=== PATIENT | female | born 1950 | race Caucasian/White ===

== ENCOUNTER → 2019-08-02 10:36 | Outpatient (BNVA) | payer MEDICARE, SELFPAY | PROVIDERS: Family Provider Family Medicine; Visit Provider Family Medicine | DX: E78.5 Hyperlipidemia, unspecified (principal); E03.9 Hypothyroidism, unspecified; F32.9 Major depressive disorder, single episode, unspecified | CPT/HCPCS: 36415; 80053; 80061; 84443; 85025 ==

== ENCOUNTER → 2019-10-04 13:38 | Outpatient (BNVA) | payer MEDICARE, SELFPAY | PROVIDERS: Family Provider Family Medicine; Visit Provider Family Medicine | DX: F33.41 Major depressive disorder, recurrent, in partial remission (principal); E78.2 Mixed hyperlipidemia; E03.9 Hypothyroidism, unspecified; R03.0 Elevated blood-pressure reading, without diagnosis of hypertension | CPT/HCPCS: 80053; 84443 ==

== ENCOUNTER → 2019-11-15 11:32 | Outpatient (BNVA) | payer MEDICARE, SELFPAY | PROVIDERS: Family Provider Family Medicine; PCP Family Medicine; Visit Provider Family Medicine | DX: E78.2 Mixed hyperlipidemia (principal); R03.0 Elevated blood-pressure reading, without diagnosis of hypertension | CPT/HCPCS: 80053; 80061 ==

== ENCOUNTER → 2021-01-14 11:34 | Outpatient (BNVA) | payer MEDICARE, SELFPAY | PROVIDERS: Family Provider Family Medicine; PCP Family Medicine; Visit Provider Family Medicine | DX: E78.2 Mixed hyperlipidemia (principal); E03.9 Hypothyroidism, unspecified; F33.41 Major depressive disorder, recurrent, in partial remission; J30.2 Other seasonal allergic rhinitis | CPT/HCPCS: 80053; 80061; 84443; 85025 ==

== ENCOUNTER → 2021-08-02 10:57 | Outpatient (BNVA) | payer MEDICARE, SELFPAY | PROVIDERS: Family Provider Family Medicine; PCP Family Medicine; Visit Provider Family Medicine | DX: E03.9 Hypothyroidism, unspecified (principal); E78.2 Mixed hyperlipidemia; F32.9 Major depressive disorder, single episode, unspecified | CPT/HCPCS: 80053; 80061; 84443 ==

== ENCOUNTER → 2022-02-07 10:55 | Outpatient (BNVA) | payer MEDICARE, SELFPAY | PROVIDERS: Family Provider Family Medicine; PCP Family Medicine; Visit Provider Family Medicine | DX: E03.9 Hypothyroidism, unspecified (principal); E78.2 Mixed hyperlipidemia; F32.9 Major depressive disorder, single episode, unspecified | CPT/HCPCS: 80061; 84443 ==

== ENCOUNTER → 2022-11-07 13:25 | Outpatient (BNVA) | payer MEDICARE, SELFPAY | PROVIDERS: Family Provider Family Medicine; PCP Family Medicine; Visit Provider Family Medicine | DX: E78.2 Mixed hyperlipidemia (principal); E03.9 Hypothyroidism, unspecified | CPT/HCPCS: 80053; 80061; 84443; 85025 ==

== ENCOUNTER → 2023-07-14 10:41 | Outpatient (BNVA) | payer MEDICARE, SELFPAY | PROVIDERS: Family Provider Family Medicine; PCP Family Medicine; Visit Provider Family Medicine | DX: E03.9 Hypothyroidism, unspecified (principal); F33.41 Major depressive disorder, recurrent, in partial remission; Z12.31 Encounter for screening mammogram for malignant neoplasm of breast | CPT/HCPCS: 84443 ==

== ENCOUNTER 2023-07-29 11:31 | Outpatient (CLI) | payer MEDICARE, SELFPAY ==
--- NOTE | 2023-07-29 11:30 | MM_ITS ---
WS: [id number] SCREENING DIGITAL BREAST TOMOSYNTHESIS MAMMOGRAM WITH CAD HISTORY: screening COMPARISON: 11/05/2018 Bilateral CC and MLO with tomosynthesis and synthetic mammography submitted. Computer aided detection analyzed. Breast composition: There are scattered areas of fibroglandular density. Spiculated mass measuring 12 x 11 x 9 mm in the posterior medial LEFT breast above the nipple line near 1:00. This mass was also described in 2019 but increased in size. Patient did not return for diagnostic imaging as recommended . RIGHT breast is negative. IMPRESSION: MM/[place] [id number] BI-RADS: 0-Incomplete: Need additional imaging evaluation FOLLOW UP: Need Additional Imaging LEFT breast: Spot compression views (CC and MLO). True ML. Ultrasound to follow if abnormality persists.
== END 2023-07-29 11:32 | disposition home or self-care (01) ==
LOC: RAD 11:31
PROVIDERS: PCP Family Medicine; Visit Provider Family Medicine
DX: Z12.31 Encounter for screening mammogram for malignant neoplasm of breast (principal)
CPT/HCPCS: 77063; 77067

== ENCOUNTER 2023-08-25 11:08 | Outpatient (CLI) | payer MEDICARE, SELFPAY ==
--- NOTE | 2023-08-25 11:00 | MM_ITS ---
WS: [id number] ADDITIONAL VIEWS LEFT MAMMOGRAM with tomosynthesis. LEFT BREAST ULTRASOUND HISTORY: breast mass COMPARISON: 07/29/2023, 11/05/2018 LEFT MAMMOGRAM: Spot compression views and true ML with tomosynthesis and sympathetic mammography. Spiculated mass persisted in the posterior LEFT breast just medial to the nipple line and above the n ipple line near 10-11 o'clock. Spiculated mass measures 10 x 8 mm. Ultrasound to follow. LEFT BREAST ULTRASOUND 2-D and color Doppler imaging submitted. LEFT breast, 10:00, 5 cm from the nipple demonstrates a hypoechoic mass with hyperechoic borders jackelin uring 7 x 9 x 7 mm. Irregular mass with increased vascularity. IMPRESSION: MM/[place] [id number] BI-RADS: 5-Highly Suggestive of Malignancy FOLLOW UP: Biopsy Recommended Ultrasound-guided biopsy recommended of the LEFT breast mass at 10:00. Notified Kelly Funes DO at 08/25/2023 12:44 PM.
--- NOTE | 2023-08-25 11:13 | US_ITS ---
WS: [id number] ADDITIONAL VIEWS LEFT MAMMOGRAM with tomosynthesis. LEFT BREAST ULTRASOUND HISTORY: breast mass COMPARISON: 07/29/2023, 11/05/2018 LEFT MAMMOGRAM: Spot compression views and true ML with tomosynthesis and sympathetic mammography. Spiculated mass persisted in the posterior LEFT breast just medial to the nipple line and above the n ipple line near 10-11 o'clock. Spiculated mass measures 10 x 8 mm. Ultrasound to follow. LEFT BREAST ULTRASOUND 2-D and color Doppler imaging submitted. LEFT breast, 10:00, 5 cm from the nipple demonstrates a hypoechoic mass with hyperechoic borders jackelin uring 7 x 9 x 7 mm. Irregular mass with increased vascularity. IMPRESSION: US/US breast LT limited* [id number] BI-RADS: 5-Highly Suggestive of Malignancy FOLLOW UP: Biopsy Recommended Ultrasound-guided biopsy recommended of the LEFT breast mass at 10:00. Notified Kelly Funes DO at 08/25/2023 12:44 PM.
== END 2023-08-25 11:09 | disposition home or self-care (01) ==
PROVIDERS: PCP Family Medicine; Visit Provider Family Medicine
DX: R92.8 Other abnormal and inconclusive findings on diagnostic imaging of breast (principal); N63.21 Unspecified lump in the left breast, upper outer quadrant
CPT/HCPCS: 76642; 77061; G0279

== ENCOUNTER 2023-09-09 11:56 | Outpatient (CLI) | payer MEDICARE, SELFPAY ==
--- NOTE | 2023-09-09 13:15 | US_ITS ---
WS: [id number] ULTRASOUND-GUIDED LEFT BREAST BIOPSY CLINICAL INFORMATION: left breast mass COMPARISON: 08/25/2023 FINDINGS: The procedure including risks, benefits, and complications were discussed with the patient who agreed to proceed. Using sterile technique patient was prepped and draped in the usual sterile fashion. Aft er 1% lidocaine utilizing real-time ultrasound guidance 6 14-gauge cores were obtained of the LEFT br east lesion at the 10 o'clock position 5 cm from the nipple. Subsequently a titanium clip was placed in the biopsy cavity. No immediate complications. Pathology demonstrates 1. Invasive mammary carcinoma with ductal and lobular features. 2. Nuclear grade 2 3. Tumor size 0.9 cm (glass slide measurement) 4. No precursor lesions or microcalcifications identified. Breast cancer prognostic profile is pending. See pathology report for final results. IMPRESSION: 5. Uncomplicated ultrasound-guided LEFT breast biopsy. 6. The pathology demonstrates invasive mammary carcinoma with ductal and lobular features nuclear gr hilario 2. 7. Breast cancer prognostic profile is pending. 8. Recommend breast surgery consultation. US/[place] [id number] BI-RADS: 6-Known Biopsy-Proven Malignancy FOLLOW UP: Surgical Biopsy Recommended Results were discussed with Aleja in Dr. Kelly Funes's office at [facility] by Dr. Joaquim Everett on 09/10/2023 at 9:00 a.m.
[2023-09-14 14:02] LABS: Breast Profile ER,PR,HER2,Ki-6 See Report
== END 2023-09-09 11:57 | disposition home or self-care (01) ==
LOC: RAD 11:57
PROVIDERS: PCP Family Medicine; Visit Provider Family Medicine
DX: C50.212 Malignant neoplasm of upper-inner quadrant of left female breast
CPT/HCPCS: 19083; 88305; 88361; 88374

== ENCOUNTER → 2024-11-17 15:55 | Outpatient (BNVA) | payer MEDICARE, SELFPAY | PROVIDERS: PCP Family Medicine; Visit Provider Family Medicine | DX: Z13.6 Encounter for screening for cardiovascular disorders (principal); E03.9 Hypothyroidism, unspecified | CPT/HCPCS: 80053; 80061; 84439; 84443; 85025 ==

== ENCOUNTER 2024-11-28 15:44 | Outpatient (CLI) | payer MEDICARE, SELFPAY ==
--- NOTE | 2024-11-28 15:45 | MM_ITS ---
WS: [id number] BILATERAL 3D TOMOSYNTHESIS DIGITAL DIAGNOSTIC MAMMOGRAPHY WITH CAD CLINICAL INFORMATION: history of left breast ca, s/p lumpectomy HISTORY: LEFT breast cancer COMPARISON: 2023 TECHNIQUE: Bilateral CC, MLO, and ML views. FINDINGS: Scattered fibroglandular densities bilaterally. Prior postoperative changes lumpectomy LEFT breast with parenchymal fibrosis and surgical clips. Previously described spiculated lesion has been resected. No suspicious focal mass, asymmetry, calcifications, or architectural distortion. No evidence of malignancy. MM/MM diag BI tomosynthesis [id number] IMPRESSION: DENSITY: There are scattered areas of fibroglandular density. BI-RADS: 2 - Benign. FOLLOW UP: 1 Year Follow-up Recommend return to annual diagnostic mammography.
== END 2024-11-28 15:45 | disposition home or self-care (01) ==
LOC: RAD 15:45
PROVIDERS: PCP Family Medicine; Visit Provider Family Medicine
DX: Z12.31 Encounter for screening mammogram for malignant neoplasm of breast (principal); R92.323 Mammographic fibroglandular density, bilateral breasts; Z98.890 Other specified postprocedural states; N60.32 Fibrosclerosis of left breast
CPT/HCPCS: 77062; G0279

== ENCOUNTER → 2025-02-20 15:31 | Outpatient (BNVA) | payer MEDICARE, SELFPAY | PROVIDERS: PCP Family Medicine; Visit Provider Family Medicine | DX: E03.9 Hypothyroidism, unspecified (principal) | CPT/HCPCS: 84439; 84443 ==

== ENCOUNTER 2025-03-06 00:58 | Emergency (ER) | payer MEDICARE, SELFPAY ==
[2025-03-06] VITALS (7 sets, daily range): BP systolic 161–198; BP diastolic 94–117; PULSE 68–102; RESP 12–18; TEMP 36.7; O2SAT 90–97; BMI 28.1
--- OUTSIDE RECORDS SUMMARY | 2025-03-06 01:03 | XMS_ITS | Clinical Summary ---
Author Organization [facility] Address [address] [place] [address] [place] [address] Care Team Providers Care Rda Name Role Phone Non-Staff, Physician Primary Care Provider Unava ilable Allergies No known active allergies Medications CHROMIUM PICOLINATE ORAL Take by mouth daily. Active 0mega-3 fatty acids-vitamin E (FISH OIL) 1,000 mg Oral Cap Take 1,000 mg by mouth daily. Active multivitamin (DAILY-ZEV) Oral tablet Take 1 Tab by mouth daily. Active cetirizine (ZYRTEC) 10 mg tabletIndication s:Allergic rhinitis Take 10 mg by mouth daily. Active loratadine (CLARITIN) 10 mg tabletIndication s:Allergic rhinitis Take 10 mg by mouth daily. Active glucosamine-elsa droitin (ARTHX DS) 500-400 mg Capsule Take 1 Capsule by mouth. Active raNITIdine (ZANTAC) 150 mg tablet Take 150 mg by mouth 1 time daily as needed. Active atorvastatin (LIPITOR) 10 mg tabletIndication s:Dyslipidemia Take 1 Tablet (10 mg) by mouth late in the day. 30 Tablet 11 04/22/2017 Active ergocalciferol (VITAMIN D2) 50,000 unit capsuleIndicatio ns:Low vitamin D level Take 1 Capsule (50,000 Units) by mouth every 7 days. 12 Capsule 3 04/22/2017 Active DULoxetine (CYMBALTA) 30 mg Capsule, Delayed Release(E.C.) Take 1 Capsule (30 mg) by mouth daily. 30 Capsule 03/02/2018 Active levothyroxine 50 mcg tabletIndication s:Hypothyroidism , unspecified type Take 1 Tablet (50 mcg) by mouth daily. 30 Tablet 03/02/2018 Active LEVOTHYROXINE 50 mcg tabletIndication s:Hypothyroidism , unspecified type TAKE ONE TABLET BY MOUTH ONCE DAILY 90 Tablet 03/03/2018 Active DULoxetine (CYMBALTA) 30 mg Capsule, Delayed Release(E.C.) TAKE 1 CAPSULE BY MOUTH DAILY 90 Capsule 04/06/2018 Active Active Problems Problem Noted Date Diagnosed Date Visit for screening mammogram 03/27/2015 Osteoarthritis, hand 02/07/2014 Overweight (BMI 25.0-29.9) 10/17/2011 Allergic rhinitis 10/17/2011 Hypercholesteremia Hypothyroidism Depression Anxiety [place] spotted fever Immunizations Immunization Administration Dates Next Due Influenza Vaccine High Dose 65+ Yrs IM 7 Family History Medical History Relation Name Comments Healthy Brother 1 Other Brother 2 cerebral palsy Healthy Daughter 1 Healthy Daughter 2 Heart Disease Father Stroke Maternal Grandmother Dementia Mother Heart Disease Mother Healthy Other Healthy Sister 1 Healthy Sister 2 Healthy Sister 3 Healthy Sister 4 Healthy Sister 5 Healthy Son 1 Healthy Son 2 Healthy Son 3 Relation Name Status Comments Brother 1 Alive Brother 2 Alive Daughter 1 Alive Daughter 2 Alive Father Maternal Grandfather Maternal Grandmother (Age 74) Mother Other Alive Paternal Grandfather Paternal Grandmother Sister 1 Alive 1/2 sister Sister 2 1/2 sister Sister 3 1/2 sister Sister 4 1/2 sister Sister 5 Other 1/2 sister Son 1 Alive Son 2 Alive Son 3 Alive Social History Tobacco Use Types Packs/Day Years Used Date Smoking Tobacco: Never Smokeless Tobacco: Never Tobacco Cessation:Counseling Given: No Alcohol Use Standard Drinks/Week Comments Yes 0 (1 standard drink = 0.6 oz pur e alcohol) occasionally Comments No Sex and Gender Information Value Date Recorded Sex Assigned at Not on file Legal Sex Female 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 Gender Identity Not on file Sexual Orientation Not on file Occupation Industry Job Start Date Job End Date Not on file Not on file Not on file Not on file Last Filed Vital Signs Vital Sign Reading Time Taken Comments Blood Pressure 130/84 04/20/2017 11:06 AM SLOT TAG INSERTER Pulse 93 04/20/2017 11:06 AM SLOT TAG INSERTER Temperature 37.1 C (98.8 F) 04/20/2017 11:06 AM SLOT TAG INSERTER Respiratory Rate 14 08/16/2014 11:31 AM CDT Oxygen Saturation 97% 04/20/2017 11:06 AM SLOT TAG INSERTER Inhaled Oxygen Concentration - - Weight 79.5 kg (175 lb 3.2 oz) 04/20/2017 11:06 AM SLOT TAG INSERTER Height 170.2 cm (5' 7 ) 04/20/2017 11:06 AM SLOT TAG INSERTER Body Mass Index 27.44 04/20/2017 11:06 AM SLOT TAG INSERTER Plan of Treatment Health Maintenance Due Date Last Done Comments DTAP/TDAP/TD VACCINES (1 - Tdap) 1970 BREAST CANCER SCREENING 1991 FIT-DNA Q 3 years 1996 FIT/FOBT Q 1 year 1996 Flex Sig/CT Colonography Q 5 years 1996 PNEUMOCOCCAL VACCINE 50+ YEA RS (1 of 1 - PCV) 2001 ZOSTER VACCINE (1 of 2) 2001 OSTEOPOROSIS SCREENING 2016 COLORECTAL SCREENING 03/07/2021 03/07/2011 (Postpone d) Colorectal Cancer Screening 03/07/2021 INFLUENZA VACCINE (#1) 2024 04/20/2017 RSV VACCINE (60+ or ) (1 - 1-dose 75+ series) [address] [place] [address] PLUS [id number] HMO Care Teams Rda Relationship Specialty Start Date End Date Non-Staff, Physician NO ADDRESS ON FILE PCP - General 04/08/19
--- OUTSIDE RECORDS SUMMARY | 2025-03-06 01:03 | XMS_ITS | Clinical Summary ---
Author Organization [facility] Address [address] [place]: [place] [address] Care Team Providers Care Professor Of Biblical Studies Name Role Phone Non-Staff, Physician Primary Care Provider Unava ilable Allergies No known active allergies Medications DULoxetine (CYMBALTA) 30 mg Capsule, Delayed Release(E.C.) Take 1 Capsule (30 mg) by mouth daily. 30 Capsule 0 8 Active levothyroxine 50 mcg tabletIndication s:Hypothyroidism , unspecified type Take 1 Tablet (50 mcg) by mouth daily. 30 Tablet 0 8 Active Additional Information Patient taking differently: 75 mcgOral DAILY, Reported on 09/24/2023 levothyroxine 50 mcg tabletIndication s:Hypothyroidism , unspecified type TAKE ONE TABLET BY MOUTH ONCE DAILY 90 Tablet 0 8 Active DULoxetine (CYMBALTA) 30 mg Capsule, Delayed Release(E.C.) TAKE 1 CAPSULE BY MOUTH DAILY 90 Capsule 0 8 Active ergocalciferol (VITAMIN D2) 50,000 unit capsuleIndicatio ns:Low vitamin D level Take 1 Capsule (50,000 Units) by mouth every 7 days. 12 Capsule 3 7 Active glucosamine-elsa droitin (ARTHX DS) 500-400 mg Capsule Take 1 Capsule by mouth daily. 7 Active loratadine (CLARITIN) 10 mg tabletIndication s:Allergic rhinitis Take 10 mg by mouth daily. 5 Active cetirizine (ZyrTEC) 10 mg tabletIndication s:Allergic rhinitis Take 10 mg by mouth daily. 5 Active zinc gluconate 50 mg Tablet Take by mouth daily at bedtime. Active MAGNESIUM GLUCONATE ORAL Take 400 mg by mouth daily at bedtime. Active HYDROcodone-acet aminophen (NORCO) 5-325 mg tabletIndication s:Malignant neoplasm of upper-inner quadrant of left breast in female, estrogen receptor positive (CMS/HCC) Take 1 Tablet by mouth every 6 hours as needed for Pain, Moderate. Max Daily Amount: 4 Tablets 10 Tablet 4 Active naproxen (NAPROSYN) 375 mg tablet TAKE 1 TABLET(375 MG) BY MOUTH EVERY 8 HOURS NEEDED FOR MODERATE PAIN 20 Tablet 4 Active Active Problems Problem Noted Date Diagnosed Date BRCA negative 12/01/2023 Lt breast Ca - s/p lump & SNbx (10/21/23) 024 Cancer Staging:Clinical stage from 09/24/2023: cT1b, cN0, cM0, ER+, CO+, HER2- - Unsigned Pathologic stage from 10/27/2023:Stage IA(pT1c, pN0(sn), cM0, G1, ER+, CO+, HER2- , Oncotype DX score: 13) - Signed by Domi Cowart MD on 11/23/2023 Visit for screening mammogram 03/27/2015 Osteoarthritis, hand 02/07/2014 Overweight (BMI 25.0-29.9) 10/17/2011 Allergic rhinitis 10/17/2011 Anxiety Hypothyroidism Depression Hypercholesteremia [place] spotted fever Encounters Date Type Department Care Team Description 01/17/2025 External Device Data [facility] ABSTRACTION Provider, Abstract 01/10/2025 External Device Data [facility] ABSTRACTION Provider, Abstract 01/04/2025 External Device Data [facility] ABSTRACTION Provider, Abstract 12/14/2024 External Device Data [facility] ABSTRACTION Provider, Abstract 12/13/2024 External Device Data [facility] ABSTRACTION Provider, Abstract from Last 3 Months Immunizations Immunization Administration Dates Next Due Influenza [...] Alive Paternal Grandfather Paternal Grandmother Sister 1 1/2 sister Sister 2 1/2 sister Sister 3 1/2 sister Sister 4 Other 1/2 sister Sister 5 Alive 1/2 sister Son 1 Alive Son 2 Alive Son 3 Alive Social History Tobacco Use Types Packs/Day Years Used Date Smoking Tobacco: Never Smokeless Tobacco: Never Tobacco Cessation:Counseling Given: Not Answered Alcohol Use Standard Drinks/Week Comments Yes 0 (1 standard drink = 0.6 oz pur e alcohol) Feeling Safe Answer Date Recorded Are you in a relationship wi th someone who hurts you emotionally and/or physically? No 10/21/2023 Comments No Sex and Gender Information Value Date Recorded Sex Assigned at Not on file Legal Sex Female 12:23 PM APPRENTICE ARCHITECT Gender Identity Not on file Sexual Orientation Not on file Last Filed Vital Signs Vital Sign Reading Time Taken Comments Blood Pressure 125/80 01/28/2024 1:31 PM CDT Pulse 94 10/21/2023 12:50 PM CDT Temperature 36.1 C (97 F) 10/21/2023 12:20 PM CDT Respiratory Rate 12 10/21/2023 12:20 PM CDT Oxygen Saturation 93% 01/28/2024 1:31 PM CDT Inhaled Oxygen Concentration - - Weight 78 kg (172 lb) 01/28/2024 1:31 PM CDT Height 170.2 cm (5' 7 ) 01/28/2024 1:31 PM CDT Body Mass Index 26.94 01/28/2024 1:31 PM CDT Plan of Treatment Health Maintenance Due Date Last Done Comments DTAP/TDAP/TD VACCINES (1 - Tdap) 1970 COLORECTAL SCREENING 1996 Colorectal Cancer Screening 1996 FIT-DNA Q 3 years 1996 FIT/FOBT Q 1 year 1996 Flex Sig/CT Colonography Q 5 years 1996 PNEUMOCOCCAL VACCINE 50+ YEA RS (1 of 1 - PCV) 2001 ZOSTER VACCINE (1 of 2) 2001 OSTEOPOROSIS SCREENING 2016 BREAST CANCER SCREENING 08/24/2024 08/25/2023, 07/29 INFLUENZA VACCINE (#1) 2024 04/20/2017 RSV VACCINE (60+ or ) (1 - 1-dose 75+ series) 2026 Medical Devices Implanted Type Area Pharmaceutical Botanist Device Identifier Shelf Expiration Date Model / Serial / Lot Clip Ligating Horizon Med Ti [id number] - Csc - Sna Implanted:Qty: 1 on 10/21/2023 by Jatin Renee MD at [facility] Clip Left: Breast TELEFLEX- WECK CLOSURE SYS 05/03/2028 [id number] / NA / [id number] Procedures Procedure Name Priority Date/Time Associated Diagnosis Comments MAMMO DIAGNOSTIC UNI LEFT W OR WO CAD Routine 08/25/2023 1:42 PM CDT from Last 3 Months or Most Recently Relevant to Health Maintenance Results * MAMMO DIAGNOSTIC UNI LEFT W OR WO CAD (08/25/2023 1:42 PM CDT) Anatomical Region Laterality Modality Breast Left Mammography us Abstract Provider MAMMO ORDERABLES Final Result from Last 3 Months or Most Recently Relevant to Health Maintenance [place] [address] [address] [place] [id number] MCR Care Teams Professor Of Biblical Studies Relationship Specialty Start Date End Date Non-Staff, Physician NO ADDRESS ON FILE PCP - General 04/08/19
--- OUTSIDE RECORDS SUMMARY | 2025-03-06 01:03 | XMS_ITS | Encounter Summary ---
Author Organization [facility] Address [address] [place] [address] Care Team Providers Care Mobile Plant Operators Name Role Phone Non-Staff, Physician Primary Care Provider Unava ilable Encounter Details Date Type Department Care Team (Latest Contact Info) Description 11/04/2013 Ancillary Orders [facility] Centralized Scheduling [address] [place] [address] James Dela Cruz, [address] [place] [id number] Other screening mammogram (Primary Dx) Social History Tobacco Use Types Packs/Day Years Used Date Smoking Tobacco: Never Smokeless Tobacco: Never Alcohol Use Standard Drinks/Week Comments Yes 0 (1 standard drink = 0.6 oz pur e alcohol) occasionally Comments No Sex and Gender Information Value Date Recorded Sex Assigned at Not on file Legal Sex Female 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
[2025-03-06] MEDS: ondansetron 2 mg/ML SDV 2 mL 4 MG IVP (02:22)
[2025-03-06] MEDS: morphine 4 mg/mL SDV 1 mL IVP (02:22)
--- NOTE | 2025-03-06 02:33 | W.ED.ABDPA2 ---
Documented by User: Dheeraj Kiran DO 03/06/25 22:42 HPI - Abdominal Pain General: Chief Complaint: Abdominal Pain Stated Complaint: Abd Pain, N/V Time Seen by Provider: 03/06/25 01:52 History of Present Illness: Patient is a 74-year-old female who presents with acute onset of lower abdominal pain and back pain that began suddenly at approximately 8:30pm today. She describes the pain as located in her lower abdomen and radiating to her back. The patient reports associated nausea with one episode of emesis. She denies having experienced similar pain previously. The patient reports experiencing chills intermittently but denies fever. She states she ate KF for dinner prior to symptom onset, though a family member who accompanied her reports eating similar food without illness. The patient reports having had a bowel movement since symptom onset but denies diarrhea or blood in stool. She also denies dysuria. No recent antibiotic use reported. Related Data Home Medications ?Medication ?Instructions ?Recorded ?Confirmed beet root PO DAILY 02/20/25 02/20/25 Previous Rx's ?Medication ?Instructions ?Recorded bupropion HCl 300 mg 24 hr tablet, 300 mg PO QAM #30 tabs 02/20/25 extended release levothyroxine 50 mcg tablet 50 mcg PO DAILY #90 tabs 02/22/25 (Levoxyl) tamsulosin 0.4 mg capsule 0.4 mg PO DAILY #10 caps 03/06/25 Allergies Allergy/AdvReac Type Severity Reaction Status Date / Time No Known Allergies Allergy Verified 03/06/25 01:32 [facility] ED PFSH: Medical History Acquired hypothyroidism Hyperlipidemia Moderate episode of recurrent major depressive disorder Surgical History History of lumpectomy of left breast negative sentinal node bx. ER/MT positive, Her2 negative. declined post-op radiation History of appendectomy History of surgery on arm Social History Smoking and tobacco/nicotine status: never used tobacco/nicotine Alcohol intake: current Alcohol intake frequency: holidays/special occasions only Substance/Drug Use: never Physical Exam Const: GENERAL APPEARANCE: cooperative and ill appearing (mildly); not frail appearing HENMT: COMMON NORMALS: normocephalic, atraumatic and Normal external nose present HEAD & SCALP: normocephalic and atraumatic FACE & SINUS: normal facial exam and face symmetric NOSE: Normal external nose present Eye: COMMON NORMALS: Equal, round and reactive pupils present and EOMs intact bilaterally PUPIL: Yes Equal, round and reactive pupils present Neck/C-Spine: GENERAL: Yes trachea midline Chest: CHEST: Yes Symmetrical chest wall rise Resp: EFFORT & INSPECTION: Yes symmetric chest movement AUSCULTATION: no rales, no rhonchi and no wheezes Cardio: COMMON NORMALS: regular rate and regular rhythm RATE: regular rate RHYTHM: regular rhythm GI: COMMON NORMALS: Normal to inspection, nondistended, normoactive bowel sounds present OTHER: Mild diffuse tenderness Extremity: COMMON NORMALS: no pedal edema Neuro: MABEL COMA SCALE: document GCS findings Mabel coma scale eye opening: Spontaneous Mabel coma scale verbal response: Orientated Mabel coma scale motor response: [place] coma scale total score: 15 SENSORY EXAM: Yes extremities (intact) Psych: COMMON NORMALS: speech normal SPEECH: Yes normal speech Skin: COMMON NORMALS: no rashes or lesions noted GENERAL SKIN EXAM: no rashes or lesions noted Course Vital Signs: Vital signs: Vital Signs Temperature 98.0 F 03/06/25 01:26 Pulse Rate 77 03/06/25 08:14 Respiratory Rate 12 03/06/25 05:54 Blood Pressure 164/99 03/06/25 08:14 Pulse Oximetry 97 03/06/25 08:14 Oxygen Delivery Me thod Room Air 03/06/25 07:36 Oxygen Flow Rate 2 03/06/25 05:54 MDM - Abdominal Pain Medical Decision Making Patient seems short of breath. Saturations are below 90%. She is placed on 2 L nasal cannula with improvement. She was hypertensive on arrival. She is given metoprolol with some improvement. Blood pressure is now 169/92. Heart rate is 70. Her creatinine is 1.3. CBC BMP are otherwise normal. Lactic acid is 0.7. CRP is only 3. Urinalysis reveals 2+ blood no leukocyte esterase. CT of the belly was performed due to abdominal tenderness, but converted to CTA of the chest with follow-through to the belly given her shortness of breath and hypoxia. Results are pending. Lab Data 03/06/25 01:35 03/06/25 01:35 Labs/Radiology: Radiology Impressions Chest/Abdomen/Pelvis CT 03/06/25 03:38 IMPRESSION: 1. No pulmonary embolism 2. 3 mm subpleural nodules as described. For patients at low risk (minimal or absent history of smoking and of other known risk factors), no routine follow-up is indicated. For patients at high risk (history of smoking or of other known risk factors), consider optional CT Chest at 12 months. IMPRESSION: 1. [id number] left hydronephrosis and hydroureter with left renal calyceal rupture and prominent perinephric fluid, secondary to an obstructing 4 mm left UVJ calculus. Thickening of the left anterior renal fascia. Decreased enhancement of the left kidney as compared to the right, suggestive of impaired renal function. 2. 2 mm distal right ureteral nonobstructing calculus just proximal to the right UVJ; there is mild focal periureteral inflammatory change at the right UVJ, but no significant right hydronephrosis or right hydroureter. Right renal inferior pole tiny nonspecific subcapsular fluid collection. 3. Bilateral adrenal gland nodularity as discussed. 4. Diverticulosis of the left and sigmoid colon, without diverticulitis 5. RLQ surgical clips are seen. 6. Appendix is not definitely visualized. NoNo pericecal inflammatory change. 7. Suggestion of mildly dilated pancreatic duct at the pancreatic head, uncinate process and proximal body. Consider MRI (pancreatic mass protocol) for further characterization and to exclude underlying pancreatic head neoplasm. Laboratory Results WBC 9.57 10^3/uL (3.29-11.43) 03/06/25 01:35 RBC 4.53 10^6/uL (3.85-5.65) 03/06/25 01:35 Hgb 14.70 g/dL (11.27-16.99) 03/06/25 01:35 Hct 42.5 % (36-47) 03/06/25 01:35 MCV 93.8 fl (85-98) 03/06/25 01:35 MCH 32.5 pg (27-33) 03/06/25 01:35 MCHC 34.6 g/dL (30-55) 03/06/25 01:35 RDW 12.0 % (12.1-15.1) L 03/06/25 01:35 Plt Count 293 10^3/cmm (157-399) 03/06/25 01:35 MPV 9.7 fL (7.4-10.4) 03/06/25 01:35 Neut % (Auto) 85.2 % 03/06/25 01:35 Lymph % (Auto) 10.2 % 03/06/25 01:35 [place] % (Auto) 3.3 % 03/06/25 01:35 Eos % (Auto) 0.7 % 03/06/25 01:35 Baso % (Auto) 0.4 % 03/06/25 01:35 Neut # (Auto) 8.14 10^3/uL (1.8-7.7) H 03/06/25 01:35 Lymph # (Auto) 1.0 10^3/uL (0.8-4.8) 03/06/25 01:35 [place] # (Auto) 0.3 10^3/uL (0.2-0.9) 03/06/25 01:35 Eos # (Auto) 0.1 10^3/uL (0.0-0.8) 03/06/25 01:35 Baso # (Auto) 0.0 10^3/uL (0.0-0.1) 03/06/25 01:35 Nucleated RBC % (auto) 0 % 03/06/25 01:35 Nucleated RBCs # 0.0 /100WBC 03/06/25 01:35 Sodium 144 mmol/L (136-145) 03/06/25 01:35 Potassium 4.3 mmol/L (3.5-5.1) 03/06/25 01:35 Chloride 104 mmol/L (98-107) 03/06/25 01:35 Carbon Dioxide 26 mmol/L (22-29) 03/06/25 01:35 Anion Gap 18.3 (5-19) 03/06/25 01:35 BUN 19 mg/dL (8-23) 03/06/25 01:35 Creatinine 1.3 mg/dL (0.5-0.9) H 03/06/25 01:35 GFR Calculation Not Reportable 03/06/25 01:35 Glucose 125 mg/dL (65-115) H 03/06/25 01:35 Calculated Osmolality 302 mOsm/kg (285-295) H 03/06/25 01:35 Lactic Acid 0.7 mmol/L (0.5-2.2) 03/06/25 02:57 Calcium 10.1 mg/dL (8.5-10.5) 03/06/25 01:35 Total Bilirubin 0.3 mg/dL (0.15-1.2) 03/06/25 01:35 AST 20 U/L (0-32) 03/06/25 01:35 ALT 15 U/L (0-33) 03/06/25 01:35 Alkaline Phosphatase 145 U/L (35-105) H 03/06/25 01:35 Troponin T Baseline 8 ng/L (0-10) 03/06/25 01:35 Troponin T 120 Minute 7.31 ng/L (0-10) 03/06/25 04:00 Delta Troponin T -0.69 ABS# (0-10) L 03/06/25 04:00 Troponin T Hi Sens 6Hr 10.64 ng/L (0-10) H 03/06/25 07:22 Troponin T Hi Sens 6Hr Delta 2.64 ng/L (0-12) 03/06/25 07:22 C-Reactive Protein 3.0 mg/L (0.0-4.9) 03/06/25 01:35 Total Protein 7.8 g/dL (6.6-8.7) 03/06/25 01:35 Albumin 4.6 g/dL (3.5-5.2) 03/06/25 01:35 Globulin 3.2 g/dL (1.3-4.6) 03/06/25 01:35 Lipase 27 U/L (13-60) 03/06/25 01:35 Urine Color Yellow (Yellow) 03/06/25 03:31 Urine Appearance Clear (CLEAR) 03/06/25 03:31 Urine pH 8 (5-7) A 03/06/25 03:31 Ur Specific [place] 1.015 (1.005-1.030) 03/06/25 03:31 Urine Protein Neg (Negative) 03/06/25 03:31 Urine Glucose (UA) Norm (Normal) 03/06/25 03:31 Urine Ketones 1+ (Negative) H 03/06/25 03:31 Urine Blood 2+ (Negative) H 03/06/25 03:31 Urine Nitrate Negative (Negative) 03/06/25 03:31 Urine Bilirubin Neg (Negative) 03/06/25 03:31 Urine Urobilinogen Norm mg/dL (Negative) 03/06/25 03:31 Ur Leukocyte Esterase Trace (Negative) H 03/06/25 03:31 Urine RBC 3-5 /hpf (0-2) 03/06/25 03:31 Urine WBC 0-4 /hpf (0-5) H 03/06/25 03:31 Ur Squamous Epith Cells 0-4 /hpf (0-5) H 03/06/25 03:31 Amorphous Sediment Not Reportable 03/06/25 03:31 Urine Bacteria None /hpf (NONE) 03/06/25 03:31 Discharge Plan Discharge Patient Disposition: Home Clinical Impression: Calculus of kidney, Dilation of pancreatic duct, Elevated serum creatinine, Pericardial effusion Condition: Stable Prescriptions: New tamsulosin 0.4 mg capsule 0.4 mg PO DAILY Qty: 10 0RF No Action beet root PO DAILY bupropion HCl 300 mg tablet extended release 24 hr 300 mg PO QAM Qty: 30 1RF levothyroxine [Levoxyl] 50 mcg tablet 50 mcg PO DAILY Qty: 90 1RF Discharge Orders: Discharge ED (Routine); Ordered 03/06/25 Ordered By: Darek Cherry Referrals: Kelly Funes DO [Primary Care Provider, Family Practice] Discharge Diet: Usual diet Discharge Activity: Resume usual activity Patient Instructions: Kidney Stones (ED), How to Strain Your Urine (ED), Opioid Safety, Pain Management, Patient Portal & Danay Instructions Activity Restrictions/Additional Instructions: Thank you for choosing [facility] for your healthcare needs today. It is very important that you follow up as instructed or that you return to the Emergency Department should you have concerns or if your condition changes or worsens in any way. Emergency department visits are focused on emergent conditions, in some cases you may require further evaluation on an outpatient basis. You were seen in the emergency room with complaints of abdominal pain. CT had several findings. There was no pulmonary embolism but there is some small fluid around the heart and some slight congestion in the lungs your oxygen saturations are normal at the time of discharge you should have a echocardiogram to further evaluate this. This can be done as an outpatient. You are also noted to have bilateral kidney stones suspect based the stones have passed since the pain had resolved. Will discharge you home on Flomax and have you strain your urine and follow-up with urology. Your kidney function was slightly elevated this is likely due to the kidney stones. This does not require hospitalization or any intervention but should have follow-up with your doctor within the next 7 to 10 days to repeat kidney function testing and recheck your blood pressure. You can follow-up on the echocardiogram (ultrasound of your heart) with your primary care doctor as well. If you have recurrence of abdominal pain increasing shortness of breath or chest pain return to the emergency room. (Please note that included in your discharge packet is information concerning opioid safety and pain management. This information is given to all patients were discharged from the ER regardless of their discharge diagnosis or the medicines they usually take or are prescribed.) Print Language: Surinamese Sign Out Sign Out Data: Patient Sign Out occurred on 03/06/25 at 06:44. Patient's care was discussed, and care was transferred from Dheeraj Kiran DO to Darek Cherry DO. 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 Documented by User: Darek Cherry DO 03/06/25 08:02 HPI - Abdominal Pain General: Chief Complaint: Abdominal Pain Stated Complaint: Abd Pain, N/V Time Seen by Provider: 03/06/25 01:52 Related Data Home Medications ?Medication ?Instructions ?Recorded ?Confirmed beet root PO DAILY 02/20/25 02/20/25 Previous Rx's ?Medication ?Instructions ?Recorded bupropion HCl 300 mg 24 hr tablet, 300 mg PO QAM #30 tabs 02/20/25 extended release levothyroxine 50 mcg tablet 50 mcg PO DAILY #90 tabs 02/22/25 (Levoxyl) tamsulosin 0.4 mg capsule 0.4 mg PO DAILY #10 caps 03/06/25 Allergies Allergy/AdvReac Type Severity Reaction Status Date / Time No Known Allergies Allergy Verified 03/06/25 01:32 [facility] ED PFS: Medical History Acquired hypothyroidism Hyperlipidemia Moderate episode of recurrent major depressive disorder Surgical History History of lumpectomy of left breast negative sentinal node bx. ER/MT positive, Her2 negative. declined post-op radiation History of appendectomy History of surgery on arm Social History Smoking and tobacco/nicotine status: never used tobacco/nicotine Alcohol intake: current Alcohol intake frequency: holidays/special occasions only Substance/Drug Use: never Physical Exam Neuro: MABEL COMA SCALE: document GCS findings Mabel coma scale total score: 15 Course Vital Signs: Vital signs: Vital Signs Temperature 98.0 F 03/06/25 01:26 Pulse Rate 77 03/06/25 08:14 Respiratory Rate 12 03/06/25 05:54 Blood Pressure 164/99 03/06/25 08:14 Pulse Oximetry 97 03/06/25 08:14 Oxygen Delivery Me thod Room Air 03/06/25 07:36 Oxygen Flow Rate 2 03/06/25 05:54 MDM - Abdominal Pain Medical Decision Making Patient seems short of breath. Saturations are below 90%. She is placed on 2 L nasal cannula with improvement. She was hypertensive on arrival. She is given metoprolol with some improvement. Blood pressure is now 169/92. Heart rate is 70. Her creatinine is 1.3. CBC BMP are otherwise normal. Lactic acid is 0.7. CRP is only 3. Urinalysis reveals 2+ blood no leukocyte esterase. CT of the belly was performed due to abdominal tenderness, but converted to CTA of the chest with follow-through to the belly given her shortness of breath and hypoxia. Results are pending. Care assumed at change of shift. First reevaluated patient her oxygen sat is 98 to 100% on room air and oxygen was removed and she is monitored she maintains her sats in the mid 90s on room air 94 to 96%. Her vital signs are stable CT showed some ground glass changes at the base of her lungs and a small pericardial effusion no PEs no pneumonia. It also showed bilateral stones her pain has resolved. Urine did not show any signs of infection did show 3+ blood. Suspect she has already passed the stones they were rather small at 4 mm on the left and 2 mm on the right. Will discharge patient home have her strain her urine and set up follow-up with urology. Will also set her up for an outpatient echocardiogram and follow-up with her primary care doctor. She has no respiratory symptoms currently. She is now no longer hypoxic. She reports she had been somewhat congested this last week which she had attributed to allergies. Finally, there is a question of abnormality in the pancreatic head they recommend MRI we will set her up for an outpatient MRI for pancreas and follow-up with primary care. Reviewed all of these findings in detail with the patient. While at the bedside her oxygen sats are maintained normally she has no shortness of breath. Her monitor frequently is not tracking well is when her oxygen sats deteriorated at this time though these notify would warrant hospitalization patient vies to return if she has further problems. Medical Records I reviewed the patient's medical records. Lab Data I reviewed the patient's lab results. 03/06/25 01:35 03/06/25 01:35 Labs/Radiology: Radiology Impressions Chest/Abdomen/Pelvis CT 03/06/25 03:38 IMPRESSION: 1. No pulmonary embolism 2. 3 mm subpleural nodules as described. For patients at low risk (minimal or absent history of smoking and of other known risk factors), no routine follow-up is indicated. For patients at high risk (history of smoking or of other known risk factors), consider optional CT Chest at 12 months. IMPRESSION: 1. Niik-gu-[id number] left hydronephrosis and hydroureter with left renal calyceal rupture and prominent perinephric fluid, secondary to an obstructing 4 mm left UVJ calculus. Thickening of the left anterior renal fascia. Decreased enhancement of the left kidney as compared to the right, suggestive of impaired renal function. 2. 2 mm distal right ureteral nonobstructing calculus just proximal to the right UVJ; there is mild focal periureteral inflammatory change at the right UVJ, but no significant right hydronephrosis or right hydroureter. Right renal inferior pole tiny nonspecific subcapsular fluid collection. 3. Bilateral adrenal gland nodularity as discussed. 4. Diverticulosis of the left and sigmoid colon, without diverticulitis 5. RLQ surgical clips are seen. 6. Appendix is not definitely visualized. NoNo pericecal inflammatory change. 7. Suggestion of mildly dilated pancreatic duct at the pancreatic head, uncinate process and proximal body. Consider MRI (pancreatic mass protocol) for further characterization and to exclude underlying pancreatic head neoplasm. Laboratory Results WBC 9.57 10^3/uL (3.29-11.43) 03/06/25 01:35 RBC 4.53 10^6/uL (3.85-5.65) 03/06/25 01:35 Hgb 14.70 g/dL (11.27-16.99) 03/06/25 01:35 Hct 42.5 % (36-47) 03/06/25 01:35 MCV 93.8 fl (85-98) 03/06/25 01:35 MCH 32.5 pg (27-33) 03/06/25 01:35 MCHC 34.6 g/dL (30-55) 03/06/25 01:35 RDW 12.0 % (12.1-15.1) L 03/06/25 01:35 Plt Count 293 10^3/cmm (157-399) 03/06/25 01:35 MPV 9.7 fL (7.4-10.4) 03/06/25 01:35 Neut % (Auto) 85.2 % 03/06/25 01:35 Lymph % (Auto) 10.2 % 03/06/25 01:35 [place] % (Auto) 3.3 % 03/06/25 01:35 Eos % (Auto) 0.7 % 03/06/25 01:35 Baso % (Auto) 0.4 % 03/06/25 01:35 Neut # (Auto) 8.14 10^3/uL (1.8-7.7) H 03/06/25 01:35 Lymph # (Auto) 1.0 10^3/uL (0.8-4.8) 03/06/25 01:35 [place] # (Auto) 0.3 10^3/uL (0.2-0.9) 03/06/25 01:35 Eos # (Auto) 0.1 10^3/uL (0.0-0.8) 03/06/25 01:35 Baso # (Auto) 0.0 10^3/uL (0.0-0.1) 03/06/25 01:35 Nucleated RBC % (auto) 0 % 03/06/25 01:35 Nucleated RBCs # 0.0 /100WBC 03/06/25 01:35 Sodium 144 mmol/L (136-145) 03/06/25 01:35 Potassium 4.3 mmol/L (3.5-5.1) 03/06/25 01:35 Chloride 104 mmol/L (98-107) 03/06/25 01:35 Carbon Dioxide 26 mmol/L (22-29) 03/06/25 01:35 Anion Gap 18.3 (5-19) 03/06/25 01:35 BUN 19 mg/dL (8-23) 03/06/25 01:35 Creatinine 1.3 mg/dL (0.5-0.9) H 03/06/25 01:35 GFR Calculation Not Reportable 03/06/25 01:35 Glucose 125 mg/dL (65-115) H 03/06/25 01:35 Calculated Osmolality 302 mOsm/kg (285-295) H 03/06/25 01:35 Lactic Acid 0.7 mmol/L (0.5-2.2) 03/06/25 02:57 Calcium 10.1 mg/dL (8.5-10.5) 03/06/25 01:35 Total Bilirubin 0.3 mg/dL (0.15-1.2) 03/06/25 01:35 AST 20 U/L (0-32) 03/06/25 01:35 ALT 15 U/L (0-33) 03/06/25 01:35 Alkaline Phosphatase 145 U/L (35-105) H 03/06/25 01:35 Troponin T Baseline 8 ng/L (0-10) 03/06/25 01:35 Troponin T 120 Minute 7.31 ng/L (0-10) 03/06/25 04:00 Delta Troponin T -0.69 ABS# (0-10) L 03/06/25 04:00 Troponin T Hi Sens 6Hr 10.64 ng/L (0-10) H 03/06/25 07:22 Troponin T Hi Sens 6Hr Delta 2.64 ng/L (0-12) 03/06/25 07:22 C-Reactive Protein 3.0 mg/L (0.0-4.9) 03/06/25 01:35 Total Protein 7.8 g/dL (6.6-8.7) 03/06/25 01:35 Albumin 4.6 g/dL (3.5-5.2) 03/06/25 01:35 Globulin 3.2 g/dL (1.3-4.6) 03/06/25 01:35 Lipase 27 U/L (13-60) 03/06/25 01:35 Urine Color Yellow (Yellow) 03/06/25 03:31 Urine Appearance Clear (CLEAR) 03/06/25 03:31 Urine pH 8 (5-7) A 03/06/25 03:31 Ur Specific [place] 1.015 (1.005-1.030) 03/06/25 03:31 Urine Protein Neg (Negative) 03/06/25 03:31 Urine Glucose (UA) Norm (Normal) 03/06/25 03:31 Urine Ketones 1+ (Negative) H 03/06/25 03:31 Urine Blood 2+ (Negative) H 03/06/25 03:31 Urine Nitrate Negative (Negative) 03/06/25 03:31 Urine Bilirubin Neg (Negative) 03/06/25 03:31 Urine Urobilinogen Norm mg/dL (Negative) 03/06/25 03:31 Ur Leukocyte Esterase Trace (Negative) H 03/06/25 03:31 Urine RBC 3-5 /hpf (0-2) 03/06/25 03:31 Urine WBC 0-4 /hpf (0-5) H 03/06/25 03:31 Ur Squamous Epith Cells 0-4 /hpf (0-5) H 03/06/25 03:31 Amorphous Sediment Not Reportable 03/06/25 03:31 Urine Bacteria None /hpf (NONE) 03/06/25 03:31 All radiology interpretation(s) finalized by discharge Discharge Plan Discharge Patient Disposition: Home Clinical Impression: Calculus of kidney, Dilation of pancreatic duct, Elevated serum creatinine, Pericardial effusion Condition: Stable Prescriptions: New tamsulosin 0.4 mg capsule 0.4 mg PO DAILY Qty: 10 0RF No Action beet root PO DAILY bupropion HCl 300 mg tablet extended release 24 hr 300 mg PO QAM Qty: 30 1RF levothyroxine [Levoxyl] 50 mcg tablet 50 mcg PO DAILY Qty: 90 1RF Discharge Orders: Discharge ED (Routine); Ordered 03/06/25 Ordered By: Darek Cherry Referrals: Kelly Funes DO [Primary Care Provider, Family Practice] Discharge Diet: Usual diet Discharge Activity: Resume usual activity Patient Instructions: Kidney Stones (ED), How to Strain Your Urine (ED), Opioid Safety, Pain Management, Patient Portal & Danay Instructions Activity Restrictions/Additional Instructions: Thank you for choosing [facility] for your healthcare needs today. It is very important that you follow up as instructed or that you return to the Emergency Department should you have concerns or if your condition changes or worsens in any way. Emergency department visits are focused on emergent conditions, in some cases you may require further evaluation on an outpatient basis. You were seen in the emergency room with complaints of abdominal pain. CT had several findings. There was no pulmonary embolism but there is some small fluid around the heart and some slight congestion in the lungs your oxygen saturations are normal at the time of discharge you should have a echocardiogram to further evaluate this. This can be done as an outpatient. You are also noted to have bilateral kidney stones suspect based the stones have passed since the pain had resolved. Will discharge you home on Flomax and have you strain your urine and follow-up with urology. Your kidney function was slightly elevated this is likely due to the kidney stones. This does not require hospitalization or any intervention but should have follow-up with your doctor within the next 7 to 10 days to repeat kidney function testing and recheck your blood pressure. You can follow-up on the echocardiogram (ultrasound of your heart) with your primary care doctor as well. If you have recurrence of abdominal pain increasing shortness of breath or chest pain return to the emergency room. (Please note that included in your discharge packet is information concerning opioid safety and pain management. This information is given to all patients were discharged from the ER regardless of their discharge diagnosis or the medicines they usually take or are prescribed.) Print Language: Surinamese Sign Out Sign Out Data: Patient Sign Out occurred on 03/06/25 at 06:44. Patient's care was discussed, and care was transferred from Dheeraj Kiran DO to Darek Cherry DO. 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
[2025-03-06 02:49] LABS: Hematocrit 42.5 % (36-47); Hemoglobin 14.70 g/dL (11.27-16.99); Mean Corpuscular HGB Conc 34.6 g/dL (30-55); Mean Corpuscular Hemoglobin 32.5 pg (27-33); Mean Corpuscular Volume 93.8 fl (85-98); Nucleated Red Blood Cells % 0 %; Platelet Count 293 10^3/cmm (157-399); Red Blood Count 4.53 10^6/uL (3.85-5.65); White Blood Count 9.57 10^3/uL (3.29-11.43)
[2025-03-06 03:02] LABS: Alanine Aminotransferase 15 U/L (0-33); Albumin Level 4.6 g/dL (3.5-5.2); Alkaline Phosphatase 145 U/L (35-105); Anion Gap 18.3 (5-19); Aspartate Amino Transferase 20 U/L (0-32); Blood Urea Nitrogen 19 mg/dL (8-23); Calcium 10.1 mg/dL (8.5-10.5); Carbon Dioxide 26 mmol/L (22-29); Chloride 104 mmol/L (98-107); Globulin 3.2 g/dL (1.3-4.6); Glucose 125 mg/dL (65-115); Lipase 27 U/L (13-60); Osmolality Calculated 302 mOsm/kg (285-295); Potassium 4.3 mmol/L (3.5-5.1); Sodium 144 mmol/L (136-145); Total Protein 7.8 g/dL (6.6-8.7)
[2025-03-06 03:06] LABS: Creatinine Clr Calc Pharmacy 42.3589
[2025-03-06] MEDS: metoprolol tartrate 1 mg/1 mL SDV 5 mL 5 MG IVP (03:30)
--- NOTE | 2025-03-06 03:38 | CTR_ITS ---
PROCEDURE INFORMATION: Exam: CTA Chest With Contrast Exam date and time: 03/06/2025 3:49 AM Age: 74 years old Clinical indication: Other: N/a; Abdominal pain; Shortness of breath; Prior surgery; Surgery date: 6+ months; Surgery type: Breast lumpectomy. Appy; SOB with tachycardia and hypoxia. Left flank pain. ; Additional info: SOB, tachycardia, hypoxia, abd pain TECHNIQUE: Imaging protocol: Computed tomographic angiography of the chest with contrast. Exam focused on the arteries. 3D rendering (Not supervised by radiologist): MIP and/or 3D reconstructed images were created by the technologist. Radiation optimization: All CT scans at this facility use at least one of these dose optimization techniques: automated exposure control; mA and/or kV adjustment per patient size (includes targeted exams where dose is matched to clinical indication); or iterative reconstruction. Contrast material: OMNI 350; Contrast volume: 100 ml; Contrast route: INTRAVENOUS (IV); COMPARISON: No relevant prior studies available. RADIATION DOSE METRICS: Total DLP (mGy-cm): 1057.4 FINDINGS: Pulmonary arteries: No pulmonary embolism Aorta: Unremarkable. No aortic aneurysm. No aortic dissection. Lungs: Multifocal diffuse bilateral ground-glass opacities in a mosaic pattern suggestive of mild pulmonary congestion; other etiologies can not be excluded Pleural spaces: Unremarkable. No pneumothorax. No pleural effusion. Heart: No findings of right heart failure. RV/LV ratio is 1.0, within normal limits. Small pericardial effusion and mild fluid within pericardial recesses. Heart size normal Lymph nodes: 3mm LLL rounded subpleural nodule versus lymph node on series /38. 3 mm RLL rounded subpleural nodule versus lymph node on series 242. Diaphragm: Small hiatal hernia Bones/joints: Unremarkable. No acute fracture. Soft tissues: Left breast surgical clips compatible with given history of breast lumpectomy (Reference: Josh) 3. Small pericardial effusion and mild fluid within pericardial recesses. 4. Small hiatal hernia 5. Evidence of mild pulmonary congestion REFERENCES: Josh Lewis et al. Guidelines for Management of Incidental Pulmonary Nodules Detected on CT Images: From the Fleischner Society 2017. Radiology. 2017;284(1):228-243. PROCEDURE INFORMATION: Exam: CT Abdomen And Pelvis With Contrast Exam date and time: 03/06/2025 3:49 AM Age: 74 years old Clinical indication: Other: N/a; Abdominal pain; Shortness of breath; Prior surgery; Surgery date: 6+ months; Surgery type: Breast lumpectomy. Appy; SOB with tachycardia and hypoxia. Left flank pain. ; Additional info: SOB, tachycardia, hypoxia, abd pain TECHNIQUE: Imaging protocol: Computed tomography of the abdomen and pelvis with contrast. Radiation optimization: All CT scans at this facility use at least one of these dose optimization techniques: automated exposure control; mA and/or kV adjustment per patient size (includes targeted exams where dose is matched to clinical indication); or iterative reconstruction. Contrast material: OMNI 350; Contrast volume: 100 ml; Contrast route: INTRAVENOUS (IV); COMPARISON: No relevant prior studies available. RADIATION DOSE METRICS: Total DLP (mGy-cm): 1057.4 FINDINGS: Tubes, catheters and devices: RLQ surgical clips are seen. Liver: Normal. No mass. Gallbladder and biliary ducts: CBD is within normal limits for the patient's age. Suggestion of mildly dilated pancreatic duct at the pancreatic head, uncinate process and proximal body. Consider MRI (pancreatic mass protocol) for further characterization and to exclude underlying pancreatic head neoplasm. Very small amount of dependent sludge within the gallbladder Pancreas: See Gallbladder and biliary ducts finding. Spleen: Normal. No splenomegaly. Adrenal glands: 13 mm right and 18 mm left adrenal gland are heterogenous and demonstrate indeterminate nodularity. Consider nonemergent adrenal mass protocol CT for further characterization. Kidneys and ureters: 2 mm distal right ureteral nonobstructing calculus just proximal to the right UVJ; there is mild focal periureteral inflammatory change at the right UVJ, but no significant right hydronephrosis or right hydroureter. Small right extrarenal pelvis.Right renal inferior pole tiny nonspecific subcapsular fluid collection (series /) [id number] left hydronephrosis and hydroureter secondary to an obstructing 4 mm left UVJ calculus. Associated periureteral fatty induration/inflammation. There is a prominently dilated left interpolar region calyx with evidence of left interpolar region forniceal/calyceal rupture,, and associated mild left perinephric free fluid. No loculated fluid collection appreciated. Thickening of the left anterior renal fascia. Decreased enhancement of the left kidney as compared to the right, suggestive of impaired renal function. Stomach and bowel: Diverticulosis of the left and sigmoid colon, without diverticulitis Appendix: Appendix is not definitely visualized. No pericecal inflammatory change. Intraperitoneal space: See Kidneys and ureters finding. Vasculature: Atheromatous calcifications Lymph nodes: Unremarkable. No enlarged lymph nodes. Urinary bladder: Unremarkable as visualized. Bones/joints: No suspicious osseous findings Soft tissues: Unremarkable. CT/CT angio chest w abd pel w con IMPRESSION: 1. No pulmonary embolism 2. 3 mm subpleural nodules as described. For patients at low risk (minimal or absent history of smoking and of other known risk factors), no routine follow-up is indicated. For patients at high risk (history of smoking or of other known risk factors), consider optional CT Chest at 12 months. IMPRESSION: 1. [id number] left hydronephrosis and hydroureter with left renal calyceal rupture and prominent perinephric fluid, secondary to an obstructing 4 mm left UVJ calculus. Thickening of the left anterior renal fascia. Decreased enhancement of the left kidney as compared to the right, suggestive of impaired renal function. 2. 2 mm distal right ureteral nonobstructing calculus just proximal to the right UVJ; there is mild focal periureteral inflammatory change at the right UVJ, but no significant right hydronephrosis or right hydroureter. Right renal inferior pole tiny nonspecific subcapsular fluid collection. 3. Bilateral adrenal gland nodularity as discussed. 4. Diverticulosis of the left and sigmoid colon, without diverticulitis 5. RLQ surgical clips are seen. 6. Appendix is not definitely visualized. NoNo pericecal inflammatory change. 7. Suggestion of mildly dilated pancreatic duct at the pancreatic head, uncinate process and proximal body. Consider MRI (pancreatic mass protocol) for further characterization and to exclude underlying pancreatic head neoplasm.
[2025-03-06 03:45] LABS: Lactic Sepsis W/Reflex 0.7 mmol/L (0.5-2.2)
[2025-03-06] MEDS: iohexol 350 mg/mL 500 mL Btl (per mL) IV (04:00)
[2025-03-06 04:03] LABS: Troponin(5th) Baseline 8 ng/L (0-10)
[2025-03-06 04:18] LABS: Glucose Urine UA Norm (Normal); Nitrate Urine Negative (Negative); Specific Gravity, Urine 1.015 (1.005-1.030); UA Manual Slide Review YES
[2025-03-06 04:24] LABS: Add Urine Microscopic? YES
[2025-03-06 04:39] LABS: Troponin 5 2HR 7.31 ng/L (0-10); Troponin 5 2HR Delta -0.69 ABS# (0-10)
[2025-03-06 07:46] LABS: Troponin 5 6HR 10.64 ng/L (0-10); Troponin 5 6HR Delta 2.64 ng/L (0-12)
--- NOTE | 2025-03-06 17:37 | DCPLANNER ---
faxed urology referral to rosa maria ferrell
== END 2025-03-06 08:18 | disposition home or self-care (01) ==
PROVIDERS: Emergency Medicine; Emergency Provider Family Medicine; PCP Family Medicine
DX: N20.0 Calculus of kidney (principal); K86.89 Other specified diseases of pancreas; I31.39 Other pericardial effusion (noninflammatory); R74.8 Abnormal levels of other serum enzymes
CPT/HCPCS: 36415; 71275; 74177; 80053; 81001; 83605; 83690; 84484; 85025; 86140; 96361; 96374; 96375; 99285; J2270; J2405; J3490; J7030